=== PATIENT | female | born 1995 | race Caucasian/White ===

== ENCOUNTER 2022-08-09 05:36 | Emergency (ER) | payer OTHER ==
[~2022-08-09] VITALS: Ht 160 cm; Wt 108.4 kg
[2022-08-09 08:10] LABS: URINE PREG TEST NEGATIVE (NEGATIVE)
[2022-08-09 11:20] VITALS: BP 132/76
== END 2022-08-09 11:29 | disposition home or self-care (01) ==
LOC: M ED 05:36
DX: N63.11 Unspecified lump in the right breast, upper outer quadrant (principal); N64.4 Mastodynia; F43.10 Post-traumatic stress disorder, unspecified

== ENCOUNTER → 2022-09-02 | Outpatient (CLI) | payer OTHER | LOC: M WHC 07:02 | PROVIDERS: ATTEND Nurse Practitioner Family | DX: N63.10 Unspecified lump in the right breast, unspecified quadrant (principal) ==